=== PATIENT | male | born 1965 | race African-American/Black ===

== ENCOUNTER 2017-02-20 06:40 | Inpatient (IN) | payer MEDICAID, OTHER ==
[~2017-02-20] VITALS: Ht 185.4 cm; Wt 88.7 kg
[2017-02-20 07:21] LABS: BASOPHILS % (AUTO) 0.3 % (0.0-2.0); EOSINOPHILS % (AUTO) 0.9 % (1.0-6.0); HEMATOCRIT 38.9 % (41-53); LYMPHOCYTES # (AUTO) 1.2 K/uL (1.0-4.8); LYMPHOCYTES % (AUTO) 14.4 % (22.0-44.0); MEAN CORPUSCULAR HEMOGLOBIN 31.8 pg (26.0-34.0); MEAN CORPUSCULAR HGB CONC 33.5 G/dL (31.0-37.0); MEAN CORPUSCULAR VOLUME 95 fL (80-100); MONOCYTES # (AUTO) 0.6 K/uL (0.1-1.0); MONOCYTES % (AUTO) 7.2 % (2.0-9.0); NEUTROPHILS # (AUTO) 6.6 K/uL (1.8-7.7); NEUTROPHILS % (AUTO) 77.2 % (40.0-70.0); PLATELET COUNT (AUTO) 254 K/uL (150-450); RED CELL DISTRIBUTION WIDTH 14.9 % (11.5-14.5); WHITE BLOOD COUNT (AUTO) 8.5 K/uL (4.5-11.0)
[2017-02-20] MEDS ORDERED: AZITHROMYCIN 500 MG/NS 250 ML IV ONE (07:30)
[2017-02-20] MEDS ORDERED: CefTRIAXone 1 GM/DEXTROSE 50 ML IV ONE (07:30)
[2017-02-20 07:32] LABS: ANION GAP 7 mmol/L (8-16); CARBON DIOXIDE 25 mmol/L (22-29); CHLORIDE 105 mmol/L (98-107); CREATININE 1.53 mg/dL (0.60-1.30); GLOMERULAR FILTR. RATE CALC 59 mL/min (>60); POTASSIUM 4.7 mmol/L (3.5-5.1); SODIUM SERUM 137 mmol/L (136-145); UREA NITROGEN, BLOOD 23 mg/dL (7-18)
[2017-02-20] MEDS ORDERED: FUROSEMIDE 40 MG/4 ML VIAL IVP ONE (07:45)
[2017-02-20 07:58] LABS: ALANINE AMINOTRANSFERASE 26 U/L (12-78); ALBUMIN 3.3 g/dL (3.4-5.0); ASPARTATE AMINOTRANSFERASE 22 U/L (15-37); BILIRUBIN,TOTAL 0.9 mg/dL (0.1-1.0); CREATINE KINASE MB 0.6 ng/mL (0-5); CREATINE KINASE, TOTAL 116 U/L (39-308); TOTAL PROTEIN, SERUM 7.6 g/dL (6.4-8.2)
[2017-02-20 08:07] LABS: B-TYPE NATRIURETIC PEPTIDE 3050 pg/mL (0-100)
[2017-02-20] MEDS ORDERED: ACETAMINOPHEN 325 MG TABLET PO PRN ×2 (08:30→09:00)
[2017-02-20] MEDS ORDERED: BISACODYL 10 MG RECTAL RECTAL SUPPOSITORY PR PRN (09:00)
[2017-02-20] MEDS ORDERED: ALBUTEROL SULFATE 2.5 MG/0.5 ML NEB SOLUTION NEB PRN (09:00)
[2017-02-20] MEDS ORDERED: ONDANSETRON HCL 4 MG/2 ML VIAL IVP PRN (09:00)
[2017-02-20] MEDS: HEPARIN SODIUM,PORCINE 5,000 UNITS/ML VIAL SQ SCH ×2 (09:37→20:55)
[2017-02-20] MEDS: PANTOPRAZOLE SODIUM 40 MG DR TABLET PO SCH (09:37)
[2017-02-20] MEDS: DOCUSATE SODIUM 100 MG CAPSULE PO SCH ×2 (09:37→20:55)
[2017-02-20] MEDS: ASPIRIN 81 MG CHEWABLE TABLET PO SCH (09:37)
[2017-02-20] MEDS: FUROSEMIDE 40 MG/4 ML VIAL IVP SCH ×2 (09:38→20:55)
[2017-02-20] MEDS: CARVEDILOL 6.25 MG TABLET PO SCH ×2 (09:48→10:24)
[2017-02-20 10:48] VITALS: BP 131/71
[2017-02-20 14:57] VITALS: BP 141/63
[2017-02-20 19:30] VITALS: BP 113/52
[2017-02-21] VITALS (7 sets, daily range): BP systolic 109–143; BP diastolic 53–73
[2017-02-21 06:34] LABS: BASOPHILS % (AUTO) 0.4 % (0.0-2.0); HEMATOCRIT 40.7 % (41-53); HEMOGLOBIN 13.4 g/dL (13.5-17.5); LYMPHOCYTES # (AUTO) 1.8 K/uL (1.0-4.8); LYMPHOCYTES % (AUTO) 17.6 % (22.0-44.0); MEAN CORPUSCULAR HEMOGLOBIN 31.6 pg (26.0-34.0); MEAN CORPUSCULAR HGB CONC 32.9 G/dL (31.0-37.0); MEAN CORPUSCULAR VOLUME 96 fL (80-100); MONOCYTES # (AUTO) 0.6 K/uL (0.1-1.0); MONOCYTES % (AUTO) 5.8 % (2.0-9.0); NEUTROPHILS # (AUTO) 7.9 K/uL (1.8-7.7); NEUTROPHILS % (AUTO) 75.2 % (40.0-70.0); PLATELET COUNT (AUTO) 268 K/uL (150-450); RED BLOOD CELL COUNT(AUTO) 4.24 MIL/uL (4.50-5.90); RED CELL DISTRIBUTION WIDTH 14.8 % (11.5-14.5); WHITE BLOOD COUNT (AUTO) 10.5 K/uL (4.5-11.0)
[2017-02-21 07:09] LABS: CALCIUM, TOTAL 8.9 mg/dL (8.8-10.5); CREATININE 1.77 mg/dL (0.60-1.30); POTASSIUM 3.8 mmol/L (3.5-5.1)
[2017-02-21] MEDS: FUROSEMIDE 40 MG/4 ML VIAL IVP SCH (09:05)
[2017-02-21] MEDS: ASPIRIN 81 MG CHEWABLE TABLET PO SCH (09:07)
[2017-02-21] MEDS: CARVEDILOL 6.25 MG TABLET PO SCH (09:07)
[2017-02-21] MEDS: DOCUSATE SODIUM 100 MG CAPSULE PO SCH ×2 (09:07→21:00)
[2017-02-21] MEDS: PANTOPRAZOLE SODIUM 40 MG DR TABLET PO SCH (09:08)
[2017-02-21] MEDS: HEPARIN SODIUM,PORCINE 5,000 UNITS/ML VIAL SQ SCH ×2 (09:09→21:00)
[2017-02-22 04:16] VITALS: BP 120/60
[2017-02-22 06:53] LABS: BASOPHILS % (AUTO) 0.4 % (0.0-2.0); EOSINOPHILS % (AUTO) 1.6 % (1.0-6.0); HEMOGLOBIN 13.8 g/dL (13.5-17.5); LYMPHOCYTES # (AUTO) 1.6 K/uL (1.0-4.8); LYMPHOCYTES % (AUTO) 18.2 % (22.0-44.0); MEAN CORPUSCULAR HGB CONC 33.7 G/dL (31.0-37.0); MEAN CORPUSCULAR VOLUME 95 fL (80-100); MONOCYTES # (AUTO) 0.6 K/uL (0.1-1.0); MONOCYTES % (AUTO) 6.3 % (2.0-9.0); NEUTROPHILS # (AUTO) 6.5 K/uL (1.8-7.7); NEUTROPHILS % (AUTO) 73.5 % (40.0-70.0); PLATELET COUNT (AUTO) 261 K/uL (150-450); RED BLOOD CELL COUNT(AUTO) 4.31 MIL/uL (4.50-5.90); RED CELL DISTRIBUTION WIDTH 14.6 % (11.5-14.5); WHITE BLOOD COUNT (AUTO) 8.9 K/uL (4.5-11.0)
[2017-02-22 07:05] LABS: ALBUMIN 3.2 g/dL (3.4-5.0); BILIRUBIN,TOTAL 0.8 mg/dL (0.1-1.0); CREATININE 1.75 mg/dL (0.60-1.30); POTASSIUM 4.6 mmol/L (3.5-5.1); TOTAL PROTEIN, SERUM 7.3 g/dL (6.4-8.2)
[2017-02-22 08:01] VITALS: BP 121/52
[2017-02-22] MEDS: PANTOPRAZOLE SODIUM 40 MG DR TABLET PO SCH (08:18)
[2017-02-22] MEDS: DOCUSATE SODIUM 100 MG CAPSULE PO SCH ×2 (08:18→21:23)
[2017-02-22] MEDS: HEPARIN SODIUM,PORCINE 5,000 UNITS/ML VIAL SQ SCH ×2 (08:18→21:24)
[2017-02-22] MEDS: ASPIRIN 81 MG CHEWABLE TABLET PO SCH (08:18)
[2017-02-22] MEDS ORDERED: CARVEDILOL 3.125 MG TABLET PO SCH (09:00)
[2017-02-22] MEDS ORDERED: FUROSEMIDE 40 MG/4 ML VIAL IVP SCH (09:00)
[2017-02-22 11:05] LABS: RBC MORPHOLOGY COMMENT ABNORMAL RBC MORPH
[2017-02-22 11:24] VITALS: BP 102/48
[2017-02-22 15:42] VITALS: BP 125/56
[2017-02-22 20:12] VITALS: BP 124/62
[2017-02-22] MEDS: FUROSEMIDE 40 MG/4 ML VIAL IVP SCH (21:23)
[2017-02-22] MEDS: CARVEDILOL 3.125 MG TABLET PO SCH (21:23)
[2017-02-23 00:03] VITALS: BP 107/59
[2017-02-23 03:54] VITALS: BP 112/56
[2017-02-23 07:06] VITALS: BP 132/58
[2017-02-23] MEDS: DOCUSATE SODIUM 100 MG CAPSULE PO SCH ×2 (08:13→21:32)
[2017-02-23] MEDS: PANTOPRAZOLE SODIUM 40 MG DR TABLET PO SCH (08:13)
[2017-02-23] MEDS: CARVEDILOL 3.125 MG TABLET PO SCH ×2 (08:13→21:33)
[2017-02-23] MEDS: FUROSEMIDE 40 MG/4 ML VIAL IVP SCH ×2 (08:14→21:32)
[2017-02-23] MEDS: HEPARIN SODIUM,PORCINE 5,000 UNITS/ML VIAL SQ SCH ×2 (08:14→21:33)
[2017-02-23] MEDS: ASPIRIN 81 MG CHEWABLE TABLET PO SCH (08:14)
[2017-02-23 12:01] VITALS: BP 121/54
[2017-02-23] MEDS ORDERED: LISINOPRIL 5 MG TABLET PO SCH (15:15)
[2017-02-23 15:20] VITALS: BP 116/58
[2017-02-23 19:34] VITALS: BP 109/50
[2017-02-24 00:16] VITALS: BP 100/50
[2017-02-24 04:53] VITALS: BP 106/56
[2017-02-24 06:10] LABS: BASOPHILS # (AUTO) 0.04 K/uL (0.00-0.20); BASOPHILS % (AUTO) 0.5 % (0.0-2.0); CALCIUM, TOTAL 8.8 mg/dL (8.8-10.5); CREATININE 2.06 mg/dL (0.60-1.30); EOSINOPHILS # (AUTO) 0.11 K/uL (0.00-0.70); EOSINOPHILS % (AUTO) 1.39 % (1.0-6.0); HEMATOCRIT 44.5 % (41-53); HEMOGLOBIN 14.5 g/dL (13.5-17.5); LYMPHOCYTES # (AUTO) 1.8 K/uL (1.0-4.8); LYMPHOCYTES % (AUTO) 21.8 % (22.0-44.0); MAGNESIUM 2.4 mg/dL (1.80-2.40); MEAN CORPUSCULAR HEMOGLOBIN 31.3 pg (26.0-34.0); MEAN CORPUSCULAR HGB CONC 32.6 G/dL (31.0-37.0); MEAN CORPUSCULAR VOLUME 96 fL (80-100); MONOCYTES # (AUTO) 0.5 K/uL (0.1-1.0); MONOCYTES % (AUTO) 6.5 % (2.0-9.0); NEUTROPHILS # (AUTO) 5.8 K/uL (1.8-7.7); NEUTROPHILS % (AUTO) 69.8 % (40.0-70.0); PLATELET COUNT (AUTO) 280 K/uL (150-450); POTASSIUM 4.3 mmol/L (3.5-5.1); RED BLOOD CELL COUNT(AUTO) 4.64 MIL/uL (4.50-5.90); RED CELL DISTRIBUTION WIDTH 14.8 % (11.5-14.5); WHITE BLOOD COUNT (AUTO) 8.3 K/uL (4.5-11.0)
[2017-02-24 07:13] VITALS: BP 104/42
[2017-02-24] MEDS: FUROSEMIDE 40 MG/4 ML VIAL IVP SCH (08:29)
[2017-02-24] MEDS: DOCUSATE SODIUM 100 MG CAPSULE PO SCH (08:30)
[2017-02-24] MEDS: ASPIRIN 81 MG CHEWABLE TABLET PO SCH (08:30)
[2017-02-24] MEDS: PANTOPRAZOLE SODIUM 40 MG DR TABLET PO SCH (08:30)
[2017-02-24] MEDS: HEPARIN SODIUM,PORCINE 5,000 UNITS/ML VIAL SQ SCH (08:31)
[2017-02-24] MEDS: CARVEDILOL 3.125 MG TABLET PO SCH (11:11)
[2017-02-24 11:41] VITALS: BP 105/50
[2017-02-24] MEDS ORDERED: CARV6 PO (14:52)
[2017-02-24] MEDS ORDERED: FURO40 PO (14:52)
[2017-02-24] MEDS ORDERED: ASPI81 PO (14:53)
[2017-02-24 15:18] VITALS: BP 117/52
== END 2017-02-24 15:30 | disposition home or self-care (01) | DRG 194 ==
LOC: EMS 06:41 → 5S 10:12
PROVIDERS: ADMIT Internal Medicine; ATTEND Internal Medicine
DX: I13.0 Hypertensive heart and chronic kidney disease with heart failure and stage 1 through stage 4 chronic kidney disease, or unspecified chronic kidney disease (principal); I47.2 Ventricular tachycardia; N17.9 Acute kidney failure, unspecified; I42.9 Cardiomyopathy, unspecified; N18.3 Chronic kidney disease, stage 3 (moderate); F19.10 Other psychoactive substance abuse, uncomplicated; Z91.19 Patient's noncompliance with other medical treatment and regimen; I50.23 Acute on chronic systolic (congestive) heart failure; E44.0 Moderate protein-calorie malnutrition; Z68.25 Body mass index [BMI] 25.0-25.9, adult
CPT/HCPCS: 80307; 83735; 87040; 93005; 93306; 96365; 96368; 96375; 99285; J0456; J0696; J1644; J1940